=== PATIENT | male | born 1955 | race Caucasian/White ===

== ENCOUNTER 2016-05-19 15:16 | Inpatient (IN) | payer OTHER ==
[~2016-05-19] VITALS: Ht 180.3 cm; Wt 102.5 kg
[2016-05-19] VITALS (7 sets, daily range): BP systolic 82–104; BP diastolic 46–57
[2016-05-19] MEDS ORDERED: TRULICITY0.75 MG/0. SQ (15:21)
[2016-05-19] MEDS ORDERED: ASPIRIN81 MG ORAL (15:21)
[2016-05-19] MEDS ORDERED: Loperamide 2mg cap ORAL ONE (15:30)
--- NOTE | 2016-05-19 15:33 | Emergency Room Report ---
History of Present Illness General Chief Complaint: Vomiting Source: Patient, EMS Present Illness HPI Patient is a 60-year-old male who presented after increased abdominal pain and vomiting. The patient had of markedly watery diarrhea. The patient stated he had several watery bowel movements. Patient had been brought in by EMS. Patient was noted be hypotensive. Patient states he's had several episodes of allergic reactions in the past. Patient denied any fever. He denied any definite bloody stools. He denied hematemesis. Allergies: Coded Allergies: LISINOPRIL (Verified Allergy, Intermediate, 05/19/16) Patient History Past Medical History: other - mast cell degranulation syndrome Reviewed Nursing Documentation: PMH: Agreed, PSxH: Agreed Nursing Documentation-PMH Past Medical History: No History, Except For Hx Diabetes: Yes - DM 2 Review of Systems All Other Systems: negative except mentioned in HPI Physical Exam Vital Signs Date Time Temp Pulse Resp B/P Pulse Ox O2 Delivery O2 Flow Rate FiO2 05/19/16 15:06 98.2 88 16 82/57 95 Room Air Sp02 EP Interpretation: reviewed, normal General Appearance: normal inspection, alert, GCS 15, mild distress Head: atraumatic ENT: normal ENT inspection, hearing grossly normal, normal voice Neck: normal inspection, full range of motion, supple, no bony tend Respiratory: normal inspection, lungs clear, normal breath sounds, no respiratory distress, no retraction, no wheezing Cardiovascular #1: regular rate, rhythm, no edema Gastrointestinal: normal inspection, normal bowel sounds, non tender, soft, no guarding, no hernia Genitourinary: no CVA tenderness Musculoskeletal: normal inspection, back normal, normal range of motion Neurologic: normal inspection, alert, oriented x3, responsive, coat finisher III-XII nml as tested, motor strength/tone normal, speech normal Psychiatric: normal inspection, judgement/insight normal, mood/affect normal Skin: normal inspection, normal color, no rash Medical Decision Making Diagnostic Impression: Primary Impression: Hypokalemia due to loss of potassium Additional Impressions: Hypocalcemia Dehydration Mast cell activation, unspecified ER Course Patient is a 60-year-old male who presented after having increased vomiting and diarrhea. Differential diagnoses included dysentery, ischemic bowel, appendicitis, perforated viscus, abdominal aortic aneurysm, inferior myocardial infarction, viral gastroenteritis, mast cell degranulation syndrome. Because of complexity of patient's case laboratory testing and imaging studies were ordered. The patient started on IV fluids. Patient was given IV Benadryl for the patient 's history of mast cell disease. The patient was noted to have been given epi prior to arrival. Patient was given IV hydrocortisone. Laboratory testing was notable for elevated white blood count. The patient was noted to have the hypokalemia as well as hypocalcemia on laboratory tests. The patient started on IV potassium.The patient was given multiple medications and was continued to be hypotensive. The patient was noted to have continued tachycardia. Patient given IV Pepcid The patient was noted to be initially hypotensive. Patient was given IV fluids. The patient had some improvement in his blood pressure.Patient denied any chest pain. The patient has previously had multiple similar type episodes which he usually has a normal white blood count. Patient was given IV Rocephin for possible bacterial intestinal infection. Dr. Ike Bonner was contacted for inpatient management due to panel physician. Labs Test 05/19/16 15:24 White Blood Count 18.8 K/UL (4.8-10.8) Red Blood Count 5.22 M/UL (4.70-6.10) Hemoglobin 16.8 G/DL (14.2-18.0) Hematocrit 50.2 % (42.0-52.0) Mean Corpuscular Volume 96 FL (80-99) Mean Corpuscular Hemoglobin 32.1 PG (27.0-31.0) Mean Corpuscular Hemoglobin Concent 33.4 G/DL (32.0-36.0) Red Cell Distribution Width 11.7 % (11.6-14.8) Platelet Count 253 K/UL (150-450) Mean Platelet Volume 7.1 FL (6.5-10.1) Neutrophils (%) (Auto) % (45.0-75.0) Lymphocytes (%) (Auto) % (20.0-45.0) Monocytes (%) (Auto) % (1.0-10.0) Eosinophils (%) (Auto) % (0.0-3.0) Basophils (%) (Auto) % (0.0-2.0) Differential Total Cells Counted 100 Neutrophils % (Manual) 67 % (45-75) Lymphocytes % (Manual) 2 % (20-45) Monocytes % (Manual) 10 % (1-10) Eosinophils % (Manual) 2 % (0-3) Basophils % (Manual) 0 % (0-2) Band Neutrophils 19 % (0-8) Platelet Estimate Adequate Platelet Morphology Normal Red Blood Cell Morphology Normal Sodium Level 144 mEQ/L (135-145) Potassium Level 2.8 mEQ/L (3.4-4.9) Chloride Level 113 mEQ/L (98-107) Carbon Dioxide Level 16 mEQ/L (20-30) Anion Gap 15 (5-15) Blood Urea Nitrogen 21 mg/dL (7-23) Creatinine 1.0 mg/dL (0.7-1.2) Estimat Glomerular Filtration Rate > 60 mL/min (>60) Glucose Level 181 mg/dL (74-106) Calcium Level 5.7 mg/dL (8.6-10.2) Total Bilirubin 0.2 mg/dL (0.0-1.2) Aspartate Amino Transf (AST/SGOT) 18 U/L (5-40) Alanine Aminotransferase (ALT/SGPT) 19 U/L (3-41) Alkaline Phosphatase 34 U/L (40-129) Troponin I < 0.30 ng/mL (<=0.30) Total Protein 3.8 g/dL (6.6-8.7) Albumin 2.2 g/dL (3.5-5.2) Globulin 1.6 g/dL Albumin/Globulin Ratio 1.3 (1.0-2.7) Lipase 26 U/L (< 60) EKG Diagnostic Results Rate: tachycardiac - 111 Rhythm: NSR Chest X-Ray Diagnostic Results EP Interpretation: Yes Findings: no consolidation, no effusion, no pneumothorax, no acute cardiopulmonary disease Number of Views: 1 Last Vital Signs Date Time Temp Pulse Resp B/P Pulse Ox O2 Delivery O2 Flow Rate FiO2 05/19/16 15:23 98.2 101 16 82/57 95 Room Air Status: unchanged Disposition: ADMITTED INPATIENT Condition: Kali Day May 19, 2016 15:33
[2016-05-19 15:42] LABS: MEAN CORPUSCULAR HEMOGLOBIN 32.1 PG (27.0-31.0); MEAN CORPUSCULAR HGB CONC 33.4 G/DL (32.0-36.0); MEAN CORPUSCULAR VOLUME 96 FL (80-99); MEAN PLATELET VOLUME 7.1 FL (6.5-10.1); PLATELET COUNT 253 K/UL (150-450); RED BLOOD COUNT 5.22 M/UL (4.70-6.10); RED CELL DISTRIBUTION WIDTH 11.7 % (11.6-14.8); WHITE BLOOD COUNT 18.8 K/UL (4.8-10.8)
[2016-05-19] MEDS ORDERED: DiphenhydrAMINE 50mg/ml Inj IVP ONE (15:45)
[2016-05-19] MEDS ORDERED: Hydrocortisone 100mg Inj IV ONE (16:00)
[2016-05-19 16:06] LABS: TROPONIN I < 0.30 ng/mL (<=0.30)
[2016-05-19 16:09] LABS: ALANINE AMINOTRANSFERASE 19 U/L (3-41); ALBUMIN/GLOBULIN RATIO 1.3 (1.0-2.7); ASPARTATE AMINO TRANSFERASE 18 U/L (5-40); CARBON DIOXIDE 16 mEQ/L (20-30); CHLORIDE 113 mEQ/L (98-107); GLOMERULAR FILTRATION RATE > 60 mL/min (>60); HEMOLYSIS 9; LIPASE 26 U/L (< 60); SODIUM 144 mEQ/L (135-145); TOTAL PROTEIN 3.8 g/dL (6.6-8.7)
[2016-05-19 16:15] LABS: ANION GAP 15 (5-15); POTASSIUM 2.8 mEQ/L (3.4-4.9)
[2016-05-19 16:19] LABS: CALCIUM 5.7 mg/dL (8.6-10.2)
[2016-05-19 16:44] LABS: BAND NEUTROPHILS % (MANUAL) 19 % (0-8); BASOPHILS % (MANUAL) 0 % (0-2); EOSINOPHILS % (MANUAL) 2 % (0-3); LYMPHOCYTES % (MANUAL) 2 % (20-45); NEUTROPHILS % (MANUAL) 67 % (45-75); PLATELET ESTIMATE ADEQUATE; PLATELET MORPHOLOGY NORMAL; TOTAL CELLS COUNTED 100
[2016-05-19] MEDS ORDERED: cefTRIAXone 1 GM in NS 55 ML IVPB ONE (18:30)
[2016-05-19] MEDS: D5 1/2NS w/KCl 20mEq 1,000 ML IV SCH (19:47)
[2016-05-19] MEDS ORDERED: Thiamine HCl 100mg/ml Inj ONE (19:54)
[2016-05-19] MEDS ORDERED: Thiamine HCl 100 MG in D5W 55 ML IVPB ONE (20:00)
[2016-05-19] MEDS ORDERED: Calcium Gluconate 10% 1 GM in NS 110 ML IVPB ONE (20:15)
[2016-05-19] MEDS: Ascorbic Acid 500mg tab ORAL SCH (20:21)
[2016-05-19] MEDS ORDERED: Thiamine HCl 100 MG in D5W 110 ML IVPB ONE (20:30)
[2016-05-19] MEDS ORDERED: Famotidine 20 MG/ 2ML VIAL IVP ONE (21:45)
[2016-05-19] MEDS ORDERED: Solu-MEDROL 40mg Inj IVP SCH (23:15)
[2016-05-19 23:44] LABS: ANION GAP 18 (5-15); CALCIUM 6.2 mg/dL (8.6-10.2); CARBON DIOXIDE 15 mEQ/L (20-30); CHLORIDE 107 mEQ/L (98-107); CREATININE 0.9 mg/dL (0.7-1.2); GLOMERULAR FILTRATION RATE > 60 mL/min (>60); HEMOLYSIS 12; POTASSIUM 3.3 mEQ/L (3.4-4.9); SODIUM 140 mEQ/L (135-145)
[2016-05-20] VITALS: BP 107/56
[2016-05-20 04:00] VITALS: BP 109/62
[2016-05-20] MEDS: D5 1/2NS w/KCl 20mEq 1,000 ML IV SCH ×2 (04:56→11:45)
[2016-05-20 07:47] LABS: MEAN CORPUSCULAR HEMOGLOBIN 32.2 PG (27.0-31.0); MEAN CORPUSCULAR HGB CONC 33.4 G/DL (32.0-36.0); MEAN CORPUSCULAR VOLUME 96 FL (80-99); MEAN PLATELET VOLUME 7.2 FL (6.5-10.1); PLATELET COUNT 245 K/UL (150-450); RED CELL DISTRIBUTION WIDTH 11.9 % (11.6-14.8); WHITE BLOOD COUNT 12.9 K/UL (4.8-10.8)
[2016-05-20 08:07] LABS: ANION GAP 18 (5-15); CALCIUM 8.4 mg/dL (8.6-10.2); CARBON DIOXIDE 21 mEQ/L (20-30); CHLORIDE 101 mEQ/L (98-107); CREATININE 1.2 mg/dL (0.7-1.2); GLOMERULAR FILTRATION RATE > 60 mL/min (>60); HEMOLYSIS 6; MAGNESIUM 1.4 mg/dL (1.7-2.5); POTASSIUM 4.7 mEQ/L (3.4-4.9); SODIUM 140 mEQ/L (135-145)
[2016-05-20] MEDS ORDERED: Solu-MEDROL 40mg Inj IVP SCH (09:00)
[2016-05-20] MEDS: Ascorbic Acid 500mg tab ORAL SCH (09:04)
[2016-05-20 10:34] LABS: LYMPHOCYTES % (MANUAL) 4 % (20-45); NEUTROPHILS % (MANUAL) 92 % (45-75); TOTAL CELLS COUNTED 100
[2016-05-20 10:35] LABS: BAND NEUTROPHILS % (MANUAL) 0 % (0-8); BASOPHILS % (MANUAL) 0 % (0-2); EOSINOPHILS % (MANUAL) 0 % (0-3); PLATELET ESTIMATE ADEQUATE; PLATELET MORPHOLOGY NORMAL
--- NOTE | 2016-05-20 19:58 | History and Physical Report ---
DATE OF ADMISSION: 05/19/2016 CHIEF COMPLAINT AND REASON FOR HOSPITALIZATION: The patient with profuse diarrhea, nausea, vomiting, dehydration, and hypotension. HISTORY OF PRESENT ILLNESS: The patient came with the above symptoms and paramedics were called. He was hypotensive upon arrival. There is no hematochezia or melena. The patient has a history of a mast cell disorder and about every two years, he has had similar episode of profound diarrhea. Usually, this is helped by EpiPen and Benadryl and he has had steroids in the past. The patient says this is similar to prior episodes and it is not clear what triggers these episodes and he is concerned it might have been something he ate. The patient has a history of [id number] diabetes well controlled and hypothyroidism, otherwise he is in good health. ALLERGIES: Possibly to lisinopril. PAST SURGICAL HISTORY: Tonsillectomy, arthroscopic surgery both knees, and open surgery right knee. MEDICATIONS: Include Trulicity, aspirin, Jardiance, levothyroxine, and metformin. HABITS: He smokes an occasional cigar. Alcohol, social. Drugs, none. SYSTEM REVIEW: HEAD, EYES, EARS, NOSE, AND THROAT: Vision and hearing is good. There is no tongue swelling. No increasing rhinorrhea or allergic rhinitis at this time. ENDOCRINE: History of diabetes and hypothyroidism. PULMONARY: No asthma, TB, or chronic cough. CARDIAC: No angina, myocardial infarction, or palpitations. His cholesterol has been normal. GASTROINTESTINAL: See above. No history of chronic diarrhea, , hematochezia, or melena. GENITOURINARY: No dysuria, hematuria, or kidney stones. NEUROLOGIC: No CVA, syncope, or seizures. PHYSICAL EXAMINATION: GENERAL: The patient is alert and well-developed man, in no acute distress. VITAL SIGNS: Temperature 98.1, pulse 110, respirations 20, and blood pressure 109/62. HEENT: Head, eyes, ears, nose, throat, sclerae are nonicteric. Ocular motions intact in all directions. Oral mucosa moist. NECK: No adenopathy or thyroid enlargement. LUNGS: Clear. HEART: Regular rhythm. No murmur. ABDOMEN: Soft without organomegaly or masses. GENITOURINARY: Deferred. RECTAL: Deferred. EXTREMITIES: No edema, cyanosis, or clubbing. NEUROLOGIC: Alert and oriented. Cranial nerves are intact. IMPRESSION: 1. Severe diarrhea. 2. Nausea and vomiting. 3. History of a mast cell disorder. 4. Hypotension, secondary to severe volume depletion. 5. Severe hypokalemia. 6. Hypomagnesemia. PLAN: The patient received large volumes of IV fluids and supportive care. He also given steroids and Benadryl in view of his history of mast cell disorder. He is now asking to be discharged. Plan of discharge will be dictated on a separate dictation. Ike Bonner M.D. DR: PRADEEP JOB#: [id number] CC:
--- NOTE | 2016-05-21 00:08 | Discharge Summary ---
DATE OF ADMISSION: 05/19/2016 DATE OF DISCHARGE: 05/20/2016 PERTINENT HISTORY: The patient presents with nausea, vomiting, dehydration, and hypotension. PERTINENT PHYSICAL FINDINGS: See dictated history and physical. His exam was negative. COURSE IN THE HOSPITAL: The patient presented with severe dehydration and diarrhea and a history of similar episodes due to the mast cell disorder. He received greater than three liters of fluid in the emergency room and potassium replacement. The patient also received Benadryl and steroids. On 05/20/2016, he felt well with no diarrhea, nausea, vomiting, and no abdominal pain. His potassium corrected to 4.7. He had normal blood pressure, felt well, and wished to go home. Had no further diarrhea. FINAL DIAGNOSES: 1. Diarrhea, severe with nausea and vomiting. 2. History of mast cell disorder. 3. Hypokalemia, severe 2.8. 4. Metabolic acidosis, CO2 16. 5. Hypomagnesemia. 6. Hypocalcemia. 7. Adult onset diabetes. DISCHARGE DISPOSITION: He is discharged home on a lactose-free diet. DISCHARGE MEDICATIONS: Per the discharge medication list, which includes his prior to admission medicines and will also get prednisone 40 mg daily for three days and magnesium oxide 400 mg twice a day. FOLLOWUP: Follow up with his primary care physician. Ike Bonner M.D. DR: PRADEEP JOB#: [id number] CC:
--- NOTE | 2016-05-22 00:05 | Cardiology Report ---
APPROVED REPORT EKG Measurement Heart [id number] IA [id number] Sinus tachycardia Low voltage QRS Borderline ECG
== END 2016-05-20 13:05 | disposition home or self-care (01) | DRG 641 ==
LOC: EDBD 15:16 → EMR 15:38 → 2E 17:50 → EDBEDREQ 18:20
DX: E86.0 Dehydration (principal); D89.40 Mast cell activation, unspecified; I95.9 Hypotension, unspecified; E83.51 Hypocalcemia; E87.6 Hypokalemia; E11.9 Type 2 diabetes mellitus without complications; E03.9 Hypothyroidism, unspecified; F17.210 Nicotine dependence, cigarettes, uncomplicated; E83.42 Hypomagnesemia; R19.7 Diarrhea, unspecified
CPT/HCPCS: 36415; 80048; 80053; 82962; 83605; 83690; 83735; 84075; 84484; 85007; 85025; 87040; 93005; J2405